=== PATIENT | female | born 2000 | race Caucasian/White ===

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

== ENCOUNTER 2021-04-29 02:32 | Emergency (ER) | payer OTHER, MEDICAID ==
[~2021-04-29] VITALS: Ht 177.8 cm; Wt 91.6 kg
[~2021-04-29 02:32] MED LIST changes: +IBUPROFEN 800800 M1 PO; +PENICILLIN V P500 MG PO
[2021-04-29 03:09] LABS: URINE BILIRUBIN NEGATIVE (Negative); URINE BLOOD TRACE (Negative); URINE CLARITY CLEAR; URINE COLOR YELLOW; URINE GLUCOSE-RANDOM NEGATIVE (Negative); URINE KETONES NEGATIVE (Negative); URINE LEUKOCYTES-REFLEX NEGATIVE (Negative); URINE NITRITE-REFLEX NEGATIVE (Negative); URINE PROTEIN NEGATIVE (Negative); URINE UROBILINOGEN 0.2 E.U./dl (0.2-1.0)
[2021-04-29 04:07] VITALS: BP 118/58
== END 2021-04-29 04:07 | disposition home or self-care (01) ==
LOC: M.ERS 02:32
PROVIDERS: Emergency Medicine
DX: O20.0 Threatened abortion (principal); F41.9 Anxiety disorder, unspecified; Z88.8 Allergy status to other drugs, medicaments and biological substances; Z3A.01 Less than 8 weeks gestation of pregnancy